=== PATIENT | female | born 1995 | race Caucasian/White ===

== ENCOUNTER 2016-09-25 17:42 | Emergency (ER) | payer BC ==
[~2016-09-25] VITALS: Ht 162.6 cm; Wt 71.8 kg
[~2016-09-25 17:42] MED LIST: ALBU0.63 NEB; BIRTH CONTROL; FLUO40CA9 PO
[2016-09-25 17:44] VITALS: BP 126/76
== END 2016-09-25 19:11 | disposition home or self-care (01) ==
LOC: ED 18:40
DX: L24.9 Irritant contact dermatitis, unspecified cause (principal); R10.2 Pelvic and perineal pain
CPT/HCPCS: 99283

== ENCOUNTER 2017-02-19 09:47 | Emergency (ER) | payer BC ==
[~2017-02-19] VITALS: Ht 162.6 cm; Wt 72.0 kg
[2017-02-19 11:43] VITALS: BP 118/76
[2017-02-19 12:02] LABS: WHITE BLOOD COUNT 13.9 x10^3/uL (4.5-13.2)
== END 2017-02-19 12:57 | disposition home or self-care (01) ==
LOC: ED 12:18
DX: N83.201 Unspecified ovarian cyst, right side (principal); Z88.1 Allergy status to other antibiotic agents
CPT/HCPCS: 36415; 76830; 80047; 81003; 84703; 85025; 99285

== ENCOUNTER 2017-07-08 17:28 | Emergency (ER) | payer BC ==
[~2017-07-08] VITALS: Ht 162.6 cm; Wt 75.3 kg
[2017-07-08 17:37] VITALS: BP 122/86
[2017-07-08 18:21] LABS: MICROSCOPIC NOT IND
[2017-07-08 18:23] LABS: CULTURE INDICATED? NO
[2017-07-08 19:02] LABS: BASOPHILS # (AUTO) 0.03 x10^3/uL (0-0.3); BASOPHILS % (AUTO) 0 % (0-1); EOSINOPHILS # (AUTO) 0.05 x10^3/uL (0-0.8); EOSINOPHILS % (AUTO) 1 % (1-7); LYMPHOCYTES # (AUTO) 2.87 x10^3/uL (1-6.1); LYMPHOCYTES % (AUTO) 33 % (22-44); MD NO; MEAN CORPUSCULAR HEMOGLOBIN 31.3 pg (27.0-34.8); MEAN CORPUSCULAR HGB CONC 33.8 g/dL (32.4-35.8); MEAN CORPUSCULAR VOLUME 92.7 fL (80-100); MEAN PLATELET VOLUME 8.8 fL (7.4-10.4); MONOCYTES # (AUTO) 0.49 x10^3/uL (0-1.4); MONOCYTES % (AUTO) 6 % (2-9); NEUTROPHILS # (AUTO) 5.17 x10^3/uL (1.8-8.0); NEUTROPHILS % (AUTO) 60 % (42-75); PLATELET COUNT 254 x10^3/uL (130-400); RED BLOOD COUNT 5.12 x10^6/uL (3.82-5.3); RED CELL DISTRIBUTION WIDTH 12.7 % (9.6-15.2)
[2017-07-08 19:13] LABS: ALBUMIN 3.8 g/dL (3.4-5.0); ANION GAP 7 mmol/L (5-15); CALCIUM 8.6 mg/dL (8.5-10.1); CHLORIDE 105 mmol/L (98-107); CREATININE 0.77 mg/dL (0.55-1.02)
[2017-07-08 20:07] LABS: CLUE CELLS NONE SEEN (NONE SEEN)
== END 2017-07-08 20:29 | disposition home or self-care (01) ==
LOC: ED 20:23
DX: R10.2 Pelvic and perineal pain (principal); G89.29 Other chronic pain; J45.909 Unspecified asthma, uncomplicated; F41.9 Anxiety disorder, unspecified
CPT/HCPCS: 36415; 76830; 80048; 81003; 82040; 84703; 85025; 87210; 87491; 87591; 87808; 99285